=== PATIENT | female | born 1945 | race Two or more races ===

== ENCOUNTER 2017-01-30 09:58 | Outpatient (CLI) | payer MEDICARE, OTHER | END 2017-01-30 23:59 | disposition home or self-care (01) | LOC: WOU 09:58 | PROVIDERS: ATTEND Podiatrist Foot & Ankle Surgery | DX: S82.841S Displaced bimalleolar fracture of right lower leg, sequela (principal); R60.0 Localized edema; X58.XXXS Exposure to other specified factors, sequela; Z98.890 Other specified postprocedural states; Z96.641 Presence of right artificial hip joint; K58.9 Irritable bowel syndrome, unspecified; Z98.42 Cataract extraction status, left eye; Z98.41 Cataract extraction status, right eye; R68.89 Other general symptoms and signs | CPT/HCPCS: G0463 ==